=== PATIENT | female | born 1970 | race Caucasian/White ===

== ENCOUNTER → 2021-02-06 | Outpatient (CLI) | payer OTHER ==
[~2021-02-06] MED LIST: ATORVASTATIN CA40 MG PO; CYMBALTA60 MG PO; ECOTRIN81 MG PO; GLUCOPHAGE500 MG PO; LOPRESSOR 25 MG25 MG PO; METHOTREXATE2.5 MG PO; MULTI COMPLETE1 EACH PO; REMERON30 MG PO; TRULICITY1.5 MG/0.5 SQ; VITAMIN D35000 UNI1 PO
== END ==
LOC: US 15:22
DX: N85.8 Other specified noninflammatory disorders of uterus (principal); D25.9 Leiomyoma of uterus, unspecified
CPT/HCPCS: 76830